=== PATIENT | male | born 1950 | race Caucasian/White ===

== ENCOUNTER 2024-05-14 11:37 | Emergency (ER) | payer OTHER ==
[~2024-05-14] VITALS: Ht 175.3 cm; Wt 74.8 kg
[2024-05-14 11:37] VITALS: BP_SYST 264; PULSE 62; RESP 18; TEMP 97.2; O2SAT 97
[2024-05-14] MEDS: cloNIDine HCL 0.1 MG TABLET PO ONE (12:02)
[2024-05-14 12:28] LABS: BASOPHILS % (AUTO) 0.5 % (0.0-2.0); EOSINOPHILS # (AUTO) 0.1 K/uL (0.0-0.4); HEMATOCRIT 33.1 % (36-54); HEMOGLOBIN 10.9 g/dL (14.0-18.0); LYMPHOCYTES # (AUTO) 1.1 K/uL (1.0-5.5); LYMPHOCYTES % (AUTO) 24.5 % (20.5-51.5); MEAN CORPUSCULAR HEMOGLOBIN 30 pg (27-31); MEAN CORPUSCULAR HGB CONC 33 % (32-36); MEAN CORPUSCULAR VOLUME 90 fL (79.0-98.0); MONOCYTES # (AUTO) 0.4 K/uL (0.0-1.0); MONOCYTES % (AUTO) 9.1 % (1.7-9.3); NEUTROPHILS # (AUTO) 2.8 K/uL (1.8-7.7); NEUTROPHILS % (AUTO) 63.9 % (40.0-70.0); PLATELET COUNT (AUTO) 191 K/uL (130-430); RED BLOOD CELL COUNT(AUTO) 3.66 MIL/uL (4.2-6.2); RED CELL DISTRIBUTION WIDTH 17.9 % (9.0-15.0); WHITE BLOOD COUNT (AUTO) 4.3 K/uL (4.8-10.8)
[2024-05-14 12:37] LABS: INR 1.4 (0.80-1.20); PROTHROMBIN TIME 13.9 SECS (9.5-12.5)
[2024-05-14 12:59] LABS: ALANINE AMINOTRANSFERASE 6 U/L (12-78); ALBUMIN 3.3 g/dL (3.4-4.8); ANION GAP 8 (5-15); ASPARTATE AMINOTRANSFERASE 12 U/L (10-37); BILIRUBIN,DIRECT 0.3 mg/dL (0.0-0.3); CALCIUM 8.8 mg/dL (8.4-11.0); CARBON DIOXIDE 35 mmol/L (23-29); CHLORIDE 97 mmol/L (98-107); CREATINE KINASE, TOTAL 48 U/L (39-308); CREATININE 3.62 mg/dL (0.55-1.30); GLUCOSE 178 mg/dL (74-106); POTASSIUM 3.8 mmol/L (3.5-5.1); SODIUM SERUM 140 mmol/L (136-145); TOTAL BILIRUBIN 0.9 mg/dL (0.0-1.0); TOTAL PROTEIN, SERUM 7.2 g/dL (6.4-8.3); UREA NITROGEN, BLOOD 11 mg/dL (8-21)
[2024-05-14] MEDS ORDERED: CLON0.2T PO (13:46)
[2024-05-14 13:59] VITALS: BP_SYST 170; PULSE 62; RESP 18; TEMP 97.2; O2SAT 97
== END 2024-05-14 13:59 | disposition home or self-care (01) ==
LOC: SED 11:37
DX: I16.0 Hypertensive urgency (principal); R51.9 Headache, unspecified; H53.8 Other visual disturbances; R53.1 Weakness; I12.0 Hypertensive chronic kidney disease with stage 5 chronic kidney disease or end stage renal disease; N18.6 End stage renal disease; Z99.2 Dependence on renal dialysis
CPT/HCPCS: 36415; 71045; 80048; 80076; 82550; 83880; 84484; 85025; 85610; 85730; 93005; 99285